=== PATIENT | male | born 1970 | race Caucasian/White ===

== ENCOUNTER 2019-03-04 10:31 | Outpatient (CLI) | payer MEDICARE ==
[2019-03-04] MEDS ORDERED: Iopamidol-370 76% 500 ML 1 ML ONE (11:01)
--- NOTE | 2019-03-04 12:52 | CT ---
CT ABDOMEN AND PELVIS WITH IV AND ORAL CONTRAST: HISTORY: Periumbilical pain. COMPARISON: CT stone protocol from 05/21/2015. FINDINGS: The lung bases are unremarkable. The liver, spleen, pancreas and adrenal glands are normal. No calcif ied gallstones are seen. There are low density lesions in the kidneys, likely cysts. A nonobstructing 5 mm left renal calculus is noted. There has been an interval increase in the size of the complex ma ss noted in the superior left kidney, currently measuring 2 cm. No free air, free fluid or lymphadenopathy is seen in the abdomen or pelvis. There are vascular calci fications without evidence of aneurysmal dilatation of the abdominal aorta. There are mild degenerati ve changes in the spine. The small bowel loops are not abnormally dilated. There is colonic diverticu losis. IMPRESSION: 1. Interval increase in the size of the superior pole left renal mass since 05/21/2015. Evaluation wi th MRI (with and without contrast) using the renal mass protocol is recommended. 2. Nonobstructing left renal calculus. 3. Colonic diverticulosis. 4. Probable renal cyst. POS: [facility]
== END 2019-03-04 10:32 | disposition home or self-care (01) ==
LOC: BICCT 10:31
PROVIDERS: ATTEND Internal Medicine
DX: R10.33 Periumbilical pain (principal); N20.0 Calculus of kidney; K57.30 Diverticulosis of large intestine without perforation or abscess without bleeding; N28.89 Other specified disorders of kidney and ureter
CPT/HCPCS: 74177; Q9967